=== PATIENT | female | born 1975 | race Caucasian/White ===

== ENCOUNTER 2019-08-30 18:12 | Emergency (ER) | payer OTHER ==
[2019-08-30 18:40] VITALS: BP 126/75
--- NOTE | 2019-08-30 19:11 | UC ---
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 Pt denies lower abdominal pain. Pt has had UTIs in the past." -denies f/c. slight body aches. had slight ST and nasal congestion 4 days ago but sx resolved. no gross hematuria. no hx or Fhx kdiney stones. -sx seem c/w prev UTIs. no LBP - History Of Current Complaint Chief Complaint: UCGU Stated Complaint: URINARY Hx Last Menstrual Period: IUD Pain Intensity: 0 - Allergies/Home Medications Allergies/Adverse Reactions: Allergies Allergy/AdvReac Type Severity Reaction Status Date / Time Sulfa (Sulfonamide Allergy Hives Verified 08/30/19 18:34 Antibiotics) PMH/Surg Hx/FS Hx/Imm Hx - Surgical History Surgical History: None - Social History Alcohol Use: None Substance Use Type: None Smoking Status (MU): Former Smoker When Did the Patient Quit Smoking/Using Tobacco: 2004 Review of Systems All Other Systems Reviewed And Are Negative: Yes Constitutional: Positive: Negative. Negative: Fatigue Skin: Positive: Negative Eyes: Positive: Negative ENT: Positive: Other - resolved, see above Respiratory: Positive: Negative Cardiovascular: Positive: Negative Gastrointestinal: Positive: Negative Genitourinary: Positive: Dysuria, Frequency, Urgency. Negative: Hematuria Motor: Positive: Negative Neurovascular: Positive: Negative Musculoskeletal: Positive: Negative Neurological: Positive: Negative Psychological: Positive: Negative Is Patient Immunocompromised?: No Physical Exam Appearance: Well-Appearing, No Pain Distress, Well-Nourished Vital Signs: Initial Vital Signs Temp 99.1 F 08/30/19 18:34 Pulse 79 08/30/19 18:34 Resp 16 08/30/19 18:34 BP 126/75 08/30/19 18:34 Pulse Ox 100 08/30/19 18:34 Eye Exam: Normal ENT Exam: Normal ENT: Positive: Pharynx normal, TMs normal Neck exam: Normal Neck: Positive: Supple, Nontender, No Lymphadenopathy Respiratory Exam: Normal Respiratory: Positive: Lungs clear, Normal breath sounds, No respiratory distress, No accessory muscle use. Negative: Crackles, Rhonchi, Stridor, Wheezing Cardiovascular Exam: Normal Cardiovascular: Positive: RRR, No Murmur Abdomen Description: Positive: Soft, Other: - Mild suprapubuic tenderness. Negative: CVA Tenderness (R), CVA Tenderness (L), Guarding Bowel Sounds: Positive: Present Musculoskeletal Exam: Normal Neurological Exam: Normal Psychological Exam: Normal Skin Exam: Normal Complaint Female Dx - Course Course Of Treatment: UA + 2 blood, + 2 LE. -treat w/ macrobid 100mgs BID x 7 d. -stressed importance of f/u for blood in UA, nitrates negative. - Differential Dx/Diagnosis Differential Diagnosis/HQI/PQRI: Renal Colic, Urinary Tract Infection Provider Diagnosis: Dysuria, Microscopic hematuria Discharge ED - Sign-Out/Discharge Documenting (check all that apply): Patient Departure All imaging exams completed and their final reports reviewed: No Studies - Discharge Plan Condition: Stable Disposition: HOME Prescriptions: Nitrofurantoin Monohyd/M-Cryst [Macrobid 100 mg Capsule] 100 mg PO BID #14 cap Patient Education Materials: Urinary Tract Infection in Women (ED) Referrals: Gary Rose MD [Primary Care Provider] - 1 Week Additional Instructions: The urine shows possibility of a UTI, but the culture/definitive results will not be completed for 2-3 days. Please call to get the results. There is some blood in the urine, which can be from a UTI. However, if there is not an infection, further evaluation for the blood in the urine should be done. Please go to the ER if you see any blood in the urine. I recommend follow up in 8-10 days (after the antibiotic is completed) regardless to make sure that the blood has cleared. Drink plenty of fluids. - Billing Disposition and Condition Condition: STABLE Disposition: Home
== END 2019-08-30 19:26 | disposition home or self-care (01) ==
LOC: UCCORT 18:12
DX: R30.0 Dysuria (principal); R31.29 Other microscopic hematuria; R10.819 Abdominal tenderness, unspecified site; R39.15 Urgency of urination; R35.0 Frequency of micturition; Z88.2 Allergy status to sulfonamides; Z87.891 Personal history of nicotine dependence
CPT/HCPCS: 81003; 87077; 87086; 87186; 99212; G0463